=== PATIENT | female | born 1950 | race Caucasian/White ===

== ENCOUNTER 2025-02-11 13:37 | Day surgery (SDC) | payer MEDICARE, BC ==
[2025-02-11] MEDS: Tetracaine HCl/PF 0.5% 4 ML Bottle EYEBOTH SCH (14:28)
[2025-02-11] MEDS: Cefuroxime 10 MG/ML SYRINGE EYELF SCH (14:28)
[2025-02-11] MEDS: Brimonidine 0.2% Ophth Soln 5 ML Bottle EYELF SCH (14:28)
[2025-02-11] MEDS: Phenylephrine 2.5% Ophth Soln 2 ML Bot EYELF SCH (14:28)
[2025-02-11] MEDS: Lidocaine 1% PF 2 ML SDV INJECT SCH (14:28)
[2025-02-11] MEDS: Pilocarpine 4% Ophth Soln 15 ML Bot EYELF SCH (14:28)
[2025-02-11] MEDS: Polymyxin B/Trimethoprim 10 ML Bottle EYELF SCH (14:29)
[2025-02-11] MEDS: Tropicamide 1% Ophth Soln 3 ML Bottle EYELF SCH (15:11)
== END 2025-02-11 16:45 ==
LOC: JD.SDS 13:37
PROVIDERS: ATTEND Ophthalmology
DX: H26.9 Unspecified cataract (principal)
CPT/HCPCS: 66984; J0697

== ENCOUNTER 2025-03-11 10:34 | Day surgery (SDC) | payer MEDICARE, BC ==
[2025-03-11] MEDS: Phenylephrine 2.5% Ophth Soln 2 ML Bot EYERT SCH (07:28)
[2025-03-11] MEDS: Lidocaine 1% PF 2 ML SDV INJECT SCH (07:29)
[2025-03-11] MEDS: Cefuroxime 10 MG/ML SYRINGE EYERT SCH (07:29)
[2025-03-11] MEDS: Pilocarpine 4% Ophth Soln 15 ML Bot EYERT SCH (07:29)
[2025-03-11] MEDS: Tetracaine HCl/PF 0.5% 4 ML Bottle EYEBOTH SCH (07:29)
[2025-03-11] MEDS: Brimonidine 0.2% Ophth Soln 5 ML Bottle EYERT SCH (07:30)
[2025-03-11] MEDS: Polymyxin B/Trimethoprim 10 ML Bottle EYERT SCH (07:30)
[2025-03-11] MEDS: Tropicamide 1% Ophth Soln 15 ML Bottle EYERT SCH (11:28)
[2025-03-11] MEDS ORDERED: Tropicamide 1% Ophth Soln 3 ML Bottle EYERT SCH (13:00)
== END 2025-03-11 13:07 ==
LOC: JD.SDS 10:34
PROVIDERS: ATTEND Ophthalmology
DX: H25.811 Combined forms of age-related cataract, right eye (principal); H52.31 Anisometropia; Z96.1 Presence of intraocular lens; I10 Essential (primary) hypertension; Z79.899 Other long term (current) drug therapy
CPT/HCPCS: 66984; J0697; J3490

== ENCOUNTER 2025-05-18 07:47 | Day surgery (SDC) | payer MEDICARE, BC ==
[~2025-05-18 07:47] MED LIST: Sodium Chloride 0.9% 10 ML Syringe FLUSH PRN; Sodium Chloride 0.9% 10 ML Syringe FLUSH SCH
[2025-05-18] MEDS: Lactated Ringers 1,000 ML IV SCH (08:30)
[2025-05-18] MEDS ORDERED: Propofol 200 MG/20 ML SDV ONE (09:27)
== END 2025-05-18 10:55 | disposition home or self-care (01) ==
LOC: JD.SDS 07:47
PROVIDERS: ATTEND Surgery
DX: D12.4 Benign neoplasm of descending colon (principal); K62.89 Other specified diseases of anus and rectum; R19.4 Change in bowel habit; I10 Essential (primary) hypertension; Z91.09 Other allergy status, other than to drugs and biological substances; Z79.899 Other long term (current) drug therapy
CPT/HCPCS: 45380; J2003; J2704; J7120; 00811; 88305; 99100

== ENCOUNTER 2025-08-14 16:28 | Inpatient (IN) | payer MEDICARE, BC ==
[2025-08-14] MEDS ORDERED: Sodium Chloride 0.9% 10 ML Syringe FLUSH PRN (16:58)
[2025-08-14 17:35] LABS: BASOPHILS ABSOLUTE AUTO 0.0 K/mm3 (0.0-0.2); BASOPHILS PERCENT AUTO 0.3 % (0.0-1.0); EOSINOPHILS ABSOLUTE AUTO 0.1 K/mm3 (0.0-0.4); EOSINOPHILS PERCENT AUTO 0.9 % (0.0-6.0); IMMATURE GRAN ABSOLUTE AUTO 0.05 K/mm3 (0.00-0.05); IMMATURE GRAN PERCENT AUTO 0.3 % (0.0-0.4); LYMPHOCYTES ABSOLUTE AUTO 2.2 K/mm3 (1.0-4.8); LYMPHOCYTES PERCENT AUTO 14.9 % (24.0-44.0); MEAN PLATELET VOLUME 8.5 fl (9.4-12.3); MONOCYTES ABSOLUTE AUTO 1.1 K/mm3 (0.0-0.8); MONOCYTES PERCENT AUTO 7.9 % (0.0-8.0); NEUTROPHILS ABSOLUTE AUTO 11.0 K/mm3 (1.8-7.7); NEUTROPHILS PERCENT AUTO 75.7 % (41.0-71.0); NRBC ABSOLUTE 0.00 (0.00-0.02); NRBC PERCENT 0.0 % (0.0-0.2); PLATELET COUNT,PLT 319 K/mm3 (150-400); RED BLOOD CELL COUNT 4.50 M/mm3 (4.10-5.30); WHITE BLOOD CELL COUNT,WBC 14.47 K/mm3 (3.9-11.3)
[2025-08-14 17:57] LABS: A/G RATIO 1.3 (1-2); ALANINE AMINOTRANSFERASE,ALT 25.0 U/L (14-59); ASPARTATE AMNIOTRANSFERASE,AST 20.0 U/L (15-37); BILIRUBIN TOTAL 0.3 mg/dL (0.2-1.0); BLOOD UREA NITROGEN,BUN 10.0 mg/dL (7-18); CARBON DIOXIDE,CO2 28.0 mEq/L (21-32); CHLORIDE,CL 104.0 mEq/L (98-107); CREATININE 0.8 mg/dL (0.55-1.02); EST CRCL DRUG DOSING (CG) 44.44 mL/min; ESTIMATED GFR 76.0 mL/min (>60); GLUCOSE RANDOM 105.0 mg/dL (70-99); POTASSIUM,K 3.9 mEq/L (3.5-5.1); PROTEIN TOTAL,TP 6.4 g/dl (6.4-8.2); SODIUM,NA 139.0 mEq/L (136-145)
[2025-08-14] MEDS: Iopamidol 755 Mg/ML 100 ML Bottle IVPUSH ONE (18:12)
[2025-08-14] MEDS: Sodium Chloride 0.9% 10 ML Syringe FLUSH ONE (18:12)
[2025-08-14] MEDS ORDERED: Ondansetron 4 MG/2 ML SDV IV PRN (19:48)
[2025-08-14] MEDS: metroNIDAZOLE/Normal Saline 500 MG in Premix Bag 1 BAG IV SCH (20:08)
[2025-08-14] MEDS: cefTRIAXone 2 GM in Water For Injection, Sterile 20 ML IVPUSH ONE (20:08)
[2025-08-14] MEDS ORDERED: PHENOBARBITAL 64.8 MG PO SCH (21:00)
[2025-08-14] MEDS ORDERED: Phenytoin 100 MG Cap.ER PO SCH (21:00)
[2025-08-14] MEDS: Phenytoin 100 MG Cap.ER PO ONE (22:42)
[2025-08-15 05:30] LABS: BASOPHILS ABSOLUTE AUTO 0.1 K/mm3 (0.0-0.2); BASOPHILS PERCENT AUTO 0.5 % (0.0-1.0); EOSINOPHILS ABSOLUTE AUTO 0.2 K/mm3 (0.0-0.4); EOSINOPHILS PERCENT AUTO 1.9 % (0.0-6.0); IMMATURE GRAN ABSOLUTE AUTO 0.05 K/mm3 (0.00-0.05); IMMATURE GRAN PERCENT AUTO 0.4 % (0.0-0.4); LYMPHOCYTES ABSOLUTE AUTO 1.9 K/mm3 (1.0-4.8); LYMPHOCYTES PERCENT AUTO 15.9 % (24.0-44.0); MEAN PLATELET VOLUME 8.7 fl (9.4-12.3); MONOCYTES ABSOLUTE AUTO 1.1 K/mm3 (0.0-0.8); MONOCYTES PERCENT AUTO 9.2 % (0.0-8.0); NEUTROPHILS ABSOLUTE AUTO 8.6 K/mm3 (1.8-7.7); NEUTROPHILS PERCENT AUTO 72.1 % (41.0-71.0); NRBC ABSOLUTE 0.00 (0.00-0.02); NRBC PERCENT 0.0 % (0.0-0.2); PLATELET COUNT,PLT 312 K/mm3 (150-400); RED BLOOD CELL COUNT 4.50 M/mm3 (4.10-5.30); WHITE BLOOD CELL COUNT,WBC 11.92 K/mm3 (3.9-11.3)
[2025-08-15 05:52] LABS: A/G RATIO 1.1 (1-2); ALANINE AMINOTRANSFERASE,ALT 21.0 U/L (14-59); ASPARTATE AMNIOTRANSFERASE,AST 14.0 U/L (15-37); BILIRUBIN TOTAL 0.3 mg/dL (0.2-1.0); BLOOD UREA NITROGEN,BUN 8.0 mg/dL (7-18); CARBON DIOXIDE,CO2 27.0 mEq/L (21-32); CHLORIDE,CL 107.0 mEq/L (98-107); CREATININE 0.7 mg/dL (0.55-1.02); EST CRCL DRUG DOSING (CG) 50.79 mL/min; ESTIMATED GFR 89.0 mL/min (>60); GLUCOSE RANDOM 106.0 mg/dL (70-99); POTASSIUM,K 4.0 mEq/L (3.5-5.1); PROTEIN TOTAL,TP 6.1 g/dl (6.4-8.2); SODIUM,NA 142.0 mEq/L (136-145)
[2025-08-15] MEDS: Phenytoin 100 MG Cap.ER PO SCH (08:16)
[2025-08-15] MEDS: cefTRIAXone 1 GM in Water For Injection, Sterile 10 ML IVPUSH SCH (20:30)
[2025-08-16 05:34] LABS: BASOPHILS ABSOLUTE AUTO 0.1 K/mm3 (0.0-0.2); BASOPHILS PERCENT AUTO 0.4 % (0.0-1.0); EOSINOPHILS ABSOLUTE AUTO 0.2 K/mm3 (0.0-0.4); EOSINOPHILS PERCENT AUTO 2.1 % (0.0-6.0); IMMATURE GRAN ABSOLUTE AUTO 0.08 K/mm3 (0.00-0.05); IMMATURE GRAN PERCENT AUTO 0.7 % (0.0-0.4); LYMPHOCYTES ABSOLUTE AUTO 2.1 K/mm3 (1.0-4.8); LYMPHOCYTES PERCENT AUTO 18.0 % (24.0-44.0); MEAN PLATELET VOLUME 8.7 fl (9.4-12.3); MONOCYTES ABSOLUTE AUTO 1.0 K/mm3 (0.0-0.8); MONOCYTES PERCENT AUTO 9.1 % (0.0-8.0); NEUTROPHILS ABSOLUTE AUTO 8.0 K/mm3 (1.8-7.7); NEUTROPHILS PERCENT AUTO 69.7 % (41.0-71.0); NRBC ABSOLUTE 0.00 (0.00-0.02); NRBC PERCENT 0.0 % (0.0-0.2); PLATELET COUNT,PLT 296 K/mm3 (150-400); RED BLOOD CELL COUNT 4.10 M/mm3 (4.10-5.30); WHITE BLOOD CELL COUNT,WBC 11.41 K/mm3 (3.9-11.3)
[2025-08-16 05:51] LABS: A/G RATIO 1.1 (1-2); ALANINE AMINOTRANSFERASE,ALT 21.0 U/L (14-59); ASPARTATE AMNIOTRANSFERASE,AST 12.0 U/L (15-37); BILIRUBIN TOTAL 0.2 mg/dL (0.2-1.0); BLOOD UREA NITROGEN,BUN 4.0 mg/dL (7-18); CARBON DIOXIDE,CO2 26.0 mEq/L (21-32); CHLORIDE,CL 109.0 mEq/L (98-107); CREATININE 0.7 mg/dL (0.55-1.02); EST CRCL DRUG DOSING (CG) 50.79 mL/min; ESTIMATED GFR 89.0 mL/min (>60); GLUCOSE RANDOM 114.0 mg/dL (70-99); POTASSIUM,K 3.4 mEq/L (3.5-5.1); PROTEIN TOTAL,TP 5.6 g/dl (6.4-8.2); SODIUM,NA 144.0 mEq/L (136-145)
[2025-08-17 04:34] LABS: BASOPHILS ABSOLUTE AUTO 0.0 K/mm3 (0.0-0.2); BASOPHILS PERCENT AUTO 0.3 % (0.0-1.0); EOSINOPHILS ABSOLUTE AUTO 0.3 K/mm3 (0.0-0.4); EOSINOPHILS PERCENT AUTO 2.5 % (0.0-6.0); IMMATURE GRAN ABSOLUTE AUTO 0.04 K/mm3 (0.00-0.05); IMMATURE GRAN PERCENT AUTO 0.3 % (0.0-0.4); LYMPHOCYTES ABSOLUTE AUTO 2.4 K/mm3 (1.0-4.8); LYMPHOCYTES PERCENT AUTO 19.4 % (24.0-44.0); MEAN PLATELET VOLUME 9.2 fl (9.4-12.3); MONOCYTES ABSOLUTE AUTO 1.1 K/mm3 (0.0-0.8); MONOCYTES PERCENT AUTO 8.5 % (0.0-8.0); NEUTROPHILS ABSOLUTE AUTO 8.5 K/mm3 (1.8-7.7); NEUTROPHILS PERCENT AUTO 69.0 % (41.0-71.0); NRBC ABSOLUTE 0.00 (0.00-0.02); NRBC PERCENT 0.0 % (0.0-0.2); PLATELET COUNT,PLT 310 K/mm3 (150-400); RED BLOOD CELL COUNT 4.32 M/mm3 (4.10-5.30); WHITE BLOOD CELL COUNT,WBC 12.34 K/mm3 (3.9-11.3)
[2025-08-17 05:01] LABS: A/G RATIO 1.0 (1-2); ALANINE AMINOTRANSFERASE,ALT 19.0 U/L (14-59); ASPARTATE AMNIOTRANSFERASE,AST 14.0 U/L (15-37); BILIRUBIN TOTAL 0.2 mg/dL (0.2-1.0); BLOOD UREA NITROGEN,BUN 4.0 mg/dL (7-18); CARBON DIOXIDE,CO2 25.0 mEq/L (21-32); CHLORIDE,CL 110.0 mEq/L (98-107); CREATININE 0.6 mg/dL (0.55-1.02); EST CRCL DRUG DOSING (CG) 59.25 mL/min; ESTIMATED GFR 92.0 mL/min (>60); GLUCOSE RANDOM 110.0 mg/dL (70-99); POTASSIUM,K 3.5 mEq/L (3.5-5.1); PROTEIN TOTAL,TP 6.1 g/dl (6.4-8.2); SODIUM,NA 145.0 mEq/L (136-145)
[2025-08-18 17:48] LABS: CALPROTECTIN,FECAL 848 ug/g (<=49)
== END 2025-08-17 12:14 | disposition home or self-care (01) | DRG 378 ==
LOC: JD.ED 16:28 → JD.MS 19:48 → MERGE 19:48
PROVIDERS: ADMIT Family Medicine; ATTEND Family Medicine
DX: K92.2 Gastrointestinal hemorrhage, unspecified (principal); K52.9 Noninfective gastroenteritis and colitis, unspecified; N85.00 Endometrial hyperplasia, unspecified; K62.5 Hemorrhage of anus and rectum; A06.0 Acute amebic dysentery; H54.7 Unspecified visual loss; I10 Essential (primary) hypertension; K44.9 Diaphragmatic hernia without obstruction or gangrene; K62.3 Rectal prolapse; M19.90 Unspecified osteoarthritis, unspecified site; R56.9 Unspecified convulsions; Z66 Do not resuscitate; Z79.899 Other long term (current) drug therapy; Z98.49 Cataract extraction status, unspecified eye; Z90.49 Acquired absence of other specified parts of digestive tract; Z98.890 Other specified postprocedural states
CPT/HCPCS: 36415; 74177; 80053; 85025; 85652; 86140; 99285; Q9967; 82272; 83630; 87045; 87046; 87899; 93005; 93010; 99222; 99231; 99232; 99238; A4216; A9270-GY; J0696; J1308; J1836; J7030